=== PATIENT | male | born 1960 | race Caucasian/White ===

== ENCOUNTER → 2016-11-25 | Outpatient (CLI) | payer OTHER ==
[2016-11-25 13:14] LABS: BILIRUBIN,TOTAL 1.1 mg/dL (0.3-1.2); BUN/CREATININE RATIO 12.3 (6-20); CALCIUM 9.6 mg/dL (8.7-10.7); CREATININE 1.3 mg/dL (0.70-1.50); POTASSIUM 4.2 meq/L (3.8-5.2); TOTAL PROTEIN 7.3 g/dL (6.1-8.0)
[2016-11-25 13:15] LABS: HEMOGLOBIN A1C 6.07 % (4.2-6.0); MEAN BLOOD GLUCOSE (CALC) 116.131 mg/dL
== END ==
LOC: LAB 12:49
PROVIDERS: ATTEND Family Medicine
DX: E78.2 Mixed hyperlipidemia (principal); I10 Essential (primary) hypertension; E29.1 Testicular hypofunction; K21.9 Gastro-esophageal reflux disease without esophagitis; F17.220 Nicotine dependence, chewing tobacco, uncomplicated; Z12.5 Encounter for screening for malignant neoplasm of prostate
CPT/HCPCS: 36415; 80053; 80061; 83036; 84403; 84443; G0103

== ENCOUNTER 2016-12-02 07:57 | Day surgery (SDC) | payer OTHER ==
[~2016-12-02 07:57] MED LIST: ATROPINE SULFATE 0.4 MG/1 ML VIAL IVP PRN; BUPIVACAINE 0.25% W/ EPI - 10 ML VIAL ONE; HYDROmorphone 2 MG/1 ML IVP PRN; Iothalamate Meglumine 30 ML VIAL IV ONE; LIDOCAINE MPF 2% - 5 ML (20 MG/1 ML) ONE; LIDOCAINE W/ SODIUM BICARB 0.5 ML SYR ONE; Lactated Ringers 1,000 ML PRIMARY IV ONE; Lactated Ringers 1,000 ML PRIMARY IV SCH; MIDAZOLAM 5 MG/1 ML ONE; NORMAL SALINE 10 ML SYRINGE FLUSH IVP PRN; ONDANSETRON 4 MG/2 ML VIAL IVP PRN; Ondansetron ODT Tab 8 MG TAB PO PRN; ROCURONIUM 10 MG/1 ML - 5 ML VIAL IVP ONE; SUFENTANIL 50 MCG/1 ML ONE; Sodium Chloride 0.9% vial 10 ML ONE; Sodium Chloride 0.9% vial 40 ML ONE; ceFAZolin Inj 2gm (Premix) 50 ML IV ONE; fentaNYL Inj 100 MCG/2 ML VIAL IVP PRN
[2016-12-02] MEDS ORDERED: BUPivacaine Inj 0.5% PF (5mg/ml) 10ml vial ONE (08:26)
[2016-12-02] MEDS ORDERED: Sodium Chloride 0.9% vial 10 ML ONE (09:07)
[2016-12-02] MEDS ORDERED: ePHEDrine Inj 50 MG/ML AMP ONE (09:07)
[2016-12-02] MEDS ORDERED: DEXAMETHASONE PF 10 MG/1 ML VIAL ONE (09:27)
[2016-12-02] MEDS ORDERED: ONDANSETRON 4 MG/2 ML VIAL ONE (09:40)
[2016-12-02] MEDS ORDERED: NEOSTIGMINE 1 MG/1 ML - 10 ML ONE (09:42)
[2016-12-02] MEDS ORDERED: GLYCOPYRROLATE 0.2 MG/1 ML VIAL ONE (09:43)
[2016-12-02] MEDS ORDERED: Lactated Ringers 1,000 ML PRIMARY IV ONE (09:54)
[2016-12-02] MEDS ORDERED: KETOROLAC 30 MG/1 ML VIAL ONE (09:56)
[2016-12-02] MEDS ORDERED: ONDANSETRON 4 MG/2 ML VIAL IVP PRN (10:08)
[2016-12-02] MEDS ORDERED: NORMAL SALINE 10 ML SYRINGE FLUSH IVP PRN (10:08)
[2016-12-02] MEDS ORDERED: MORPHINE SULFATE 2 MG/1 ML IVP PRN (10:08)
[2016-12-02] MEDS ORDERED: HYDROcodone-APAP 5 MG -325 MG TABLET PO PRN (10:08)
--- NOTE | 2016-12-02 10:08 | GEN.OPNOTE ---
Operative Note Surgery Date: 12/02/16 Preoperative Diagnosis: Cholelithiasis and chronic cholecystitis. Postoperative Diagnosis: Cholelithiasis and chronic cholecystitis. Procedure: Laparoscopic cholecystectomy with intraoperative cholangiogram. Surgeon: Tae Hernandez MD [employer] Officer: Pierce Patton MD Anesthesia Provider: Akila Mckenzie CRNA Anesthesia Type: General Estimated Blood Loss (mL): 20 Fluids: 1900 mL of crystalloid. 2 g of IV Ancef at the start of the procedure. 30 mg of IV Toradol at the end of the procedure. Pathology: Specimen to pathology. Indications: Symptomatic gallstones. Findings: Adhesions to the gallbladder. Some adhesions in the right lower quadrant. Intraoperative cholangiogram showed a normal sized duct with a normal distal taper and free flow of contrast into the duodenum. There were no filling defects. There was a normal branching pattern. Complications: None. Operative Summary: The patient was taken to the operating room and placed on the operating table in the supine position. Following induction of general anesthetic the abdomen was prepped and draped in a sterile fashion. A surgical timeout was done. The infraumbilical region was infiltrated with 1/4% Marcaine with epinephrine. An incision was made. The abdominal wall was elevated. A Veres needle was placed without apparent injury and a pneumoperitoneum was induced. The veres needle was withdrawn. A 10 mm trocar was placed without apparent injury and a laparoscope was inserted. Under direct visualization and following Marcaine injection a 10 mm trocar was placed in the epigastrium and 2x5 mm trochars were placed along the costal margin. The gallbladder was grasped and elevated. Blunt dissection was used to free the cystic duct. A clip was placed along the neck of the gallbladder. A hole was made in the side wall of the cystic duct. A Emmanuel cholangiocatheter was inserted. Intraoperative cholangiogram was taken and was normal as previously dictated. The Emmanuel catheter was withdrawn. 2 clips were placed on the distal cystic duct and the duct was divided. The cystic artery was isolated. 2 clips were placed proximally and one distally and the artery was divided. The gallbladder was taken from the hepatic bed using electrocautery. Hemostasis was assured. Appropriate irrigation and suctioning were performed. Final check for hemostasis was made. 5 mL of Marcaine was placed in the gallbladder fossa and 5 over the dome of the liver. The laparoscope was moved to the epigastric port. The gallbladder was placed in an Endopouch and then it was grasped with a large grasper and brought up to the umbilical trocar site. The fascial defect at the umbilicus was slightly increased in size. The gallbladder was brought out through the trocar site without difficulty. The fascial defect at the umbilicus was closed with a running 0 Vicryl. A final check for hemostasis was made. The CO2 was burped from the abdominal cavity. The trochars were removed under direct visualization. The epigastric trocar site was closed with a simple stitch of 0 Vicryl. The skin wounds were closed with inverted interrupted or running subcuticular 4-0 Monocryl followed by Mastisol Steri-Strips and an appropriate dressing. Patient tolerated the procedure well without complication. Patient was taken to the recovery room in stable condition. All counts were correct.
[2016-12-02] MEDS ORDERED: Lactated Ringers 1,000 ML PRIMARY IV SCH (10:15)
[2016-12-02 12:51] VITALS: RESP 14
[2016-12-02 13:42] VITALS: TEMP 97.6
--- NOTE | 2016-12-02 17:25 | DI ---
History laparoscopic cholecystectomy. Evaluate for ductal patency. 3 images were obtained intraoperatively with contrast administered into the cystic duct remnant. Findings: Common hepatic common bile duct and distal pancreatic duct are all well outlined. There is prompt passage of contrast into the duodenum. No filling defects or dilatation identified. Impression: Unremarkable intraoperative cholangiogram. No filling defect or ductal dilatation identif ied
== END 2016-12-02 13:11 | disposition home or self-care (01) ==
LOC: SDSC 07:57
PROVIDERS: ATTEND Surgery
DX: K80.10 Calculus of gallbladder with chronic cholecystitis without obstruction (principal)
CPT/HCPCS: 47563; 74300; A4216; J0690; J1885; J2704; Q9961; J1100; J2001; J2250; J2405; J2710; J3490; J7120

== ENCOUNTER → 2017-05-31 | Outpatient (CLI) | payer OTHER ==
[2017-05-31 08:30] LABS: BASOPHILS # (AUTO) 0.05 10*3/UL; BASOPHILS % (AUTO) 0.9 % (0-1); EOSINOPHILS # (AUTO) 0.19 10*3/UL; EOSINOPHILS % (AUTO) 3.6 % (0-8); HEMATOCRIT 47.4 % (42.0-52.0); HEMOGLOBIN 15.7 g/dL (14.0-18.0); LYMPHOCYTES # (AUTO) 1.21 10*3/uL; MEAN CORPUSCULAR HEMOGLOBIN 29.1 PG (27-31); MEAN CORPUSCULAR HGB CONC 33.1 g/dL (33-37); MEAN CORPUSCULAR VOLUME 87.9 FL (80-90); MEAN PLATELET VOLUME 9.3 FL (7.4-12.2); MONOCYTES # (AUTO) 0.55 10*3/UL (0.3-0.8); MONOCYTES % (AUTO) 10.4 % (5-15); NEUTROPHILS # (AUTO) 3.27 10*3/UL; NEUTROPHILS % (AUTO) 61.7 % (50-80); RED BLOOD COUNT 5.39 10^6/uL (4.70-6.10)
[2017-05-31 08:31] LABS: BILIRUBIN,URINE NEGATIVE (NEG); CLARITY,URINE CLEAR (CLEAR); COLOR,URINE YELLOW; GLUCOSE, URINE (UA) NEGATIVE (NEG); NITRATE,URINE NEGATIVE (NEG); OCCULT BLOOD,URINE NEGATIVE (NEG); PROTEIN,URINE NEGATIVE (NEG); UROBILINOGEN,URINE 0.2 EU/dL (0.2)
[2017-05-31 08:38] LABS: PLATELET MORPHOLOGY COMMENT NORMAL MORPHOLOGY (NORM); RBC MORPHOLOGY COMMENT NORMAL MORPHOLOGY (NORM); WBC MORPHOLOGY COMMENT NORMAL MORPHOLOGY (NORM)
[2017-05-31 08:39] LABS: URINE SAMPLE TYPE CLEAN CATCH URINE
[2017-05-31 08:49] LABS: HEMOGLOBIN A1C 6.29 % (4.2-6.0)
[2017-05-31 09:00] LABS: BLOOD UREA NITROGEN 16 mg/dL (7-22); BUN/CREATININE RATIO 14.54 (6-20); CALCIUM 9.5 mg/dL (8.7-10.7); CHOL/HDL RATIO 4.68 RATIO (0-4.0); EST GLOMERULAR FILTRATION > 60 (>60 ml/min/1.73m(2)); HDL CHOLESTEROL 44 mg/dL (40-150); SERUM ALBUMIN 4.4 g/dL (3.5-4.8); SERUM CHOLESTEROL 206 mg/dL (120-200)
== END ==
LOC: LAB 08:06
PROVIDERS: ATTEND Family Medicine
DX: Z00.00 Encounter for general adult medical examination without abnormal findings (principal); E78.2 Mixed hyperlipidemia; I10 Essential (primary) hypertension; N32.89 Other specified disorders of bladder; E29.1 Testicular hypofunction; Z12.5 Encounter for screening for malignant neoplasm of prostate
CPT/HCPCS: 36415; 80053; 80061; 81003; 83036; 84403; 84443; 85025; G0103

== ENCOUNTER → 2017-06-18 | Outpatient (CLI) | payer OTHER | LOC: MOB LAB 15:36 | PROVIDERS: ATTEND Family Medicine | DX: E29.1 Testicular hypofunction (principal); Z12.5 Encounter for screening for malignant neoplasm of prostate | CPT/HCPCS: 36415; 84403; G0103 ==